=== PATIENT | male | born 1950 | race Caucasian/White ===

== ENCOUNTER → 2017-09-05 | Outpatient (CLI) | payer BC ==
[~2017-09-05] MED LIST: ATOR-22 PO; CLB/200 PO; LOSA100T2 PO; NRV/10 PO; TOLT4CAP PO
--- NOTE | 2017-09-05 08:24 | DIAGNOSTIC IMAGING REPORT ---
CT LUNG SCREENING CHEST, LOW DOSE WITH COMPUTER-AIDED DETECTION (CAD) CLINICAL HISTORY: Significant past smoking history. COMPARISON STUDY: Chest CT January 27, 2015. CT DOSE: 82.21 mGy.cm TECHNIQUE: Low-dose helical CT was acquired without intravenous contrast from lung apices to bases and reconstructed at 2.5 mm every 2 mm. CAD was utilized for this study. A dose lowering technique was utilized adhering to the principles of ALARA. FINDINGS: No enlarged axillary, mediastinal or hilar lymph nodes are present. The heart is mildly enlarged. There is no pericardial effusion. Incidental note is made of an azygos fissure. The central airways are patent. There are no suspicious pulmonary nodules. A 4 mm left upper lobe nodule shown on image 111 of [id number] of January 27, 2015. This is benign. No new pulmonary nodules are present. There is no consolidation. No pneumothorax or pleural effusion is noted. Bony thorax is unremarkable. Probable fatty infiltration of the liver is noted. IMPRESSION: 1. No suspicious pulmonary nodules. Lung RADS 2: Benign findings. Continue annual lung cancer screening with low dose chest CT September 05, 2018. 2. No acute intrathoracic findings. 3. Mild cardiomegaly. CAD FINDINGS: Overall Lung RADS Category: 2 Lung RADS Management Recommendation: Continue annual lung cancer screening. Lung RADS Follow Up Date: 2018-09-05 Electronically signed by: Abdullahi Hoffman M.D. 09/05/2017 8:23 AM Dictated Date/Time: 09/05/2017 8:15 AM
== END | disposition home or self-care (01) ==
LOC: C.CTS 08:01
PROVIDERS: ATTEND Family Medicine
DX: Z12.2 Encounter for screening for malignant neoplasm of respiratory organs (principal); Z87.891 Personal history of nicotine dependence